=== PATIENT | male | born 1990 | race Caucasian/White ===

== ENCOUNTER 2020-07-09 20:38 | Emergency (ER) | payer BC ==
[2020-07-09] MEDS ORDERED: AUGMENTIN 875-1 EAC1 PO (23:42)
[2020-07-09 23:50] VITALS: BP 140/90
== END 2020-07-09 23:50 | disposition home or self-care (01) ==
LOC: ED 20:38
DX: S50.871A Other superficial bite of right forearm, initial encounter (principal); S80.871A Other superficial bite, right lower leg, initial encounter; S50.872A Other superficial bite of left forearm, initial encounter; S80.872A Other superficial bite, left lower leg, initial encounter; W55.01XA Bitten by cat, initial encounter; Y92.009 Unspecified place in unspecified non-institutional (private) residence as the place of occurrence of the external cause
CPT/HCPCS: 90715; J0295